=== PATIENT | male | born 1980 | race Caucasian/White ===

== ENCOUNTER → 2020-11-28 09:30 | Outpatient (CLI) | payer OTHER, SELFPAY ==
[2020-11-28 10:38] LABS: Hematocrit 46.5 % (41-53); Hemoglobin 15.2 g/dL (13.5-17.5); Mean Corpuscular HGB Conc 32.6 % (30-36); Mean Corpuscular Hemoglobin 27.5 PG (26-34); Mean Corpuscular Volume 84.2 fL (80-100); Platelet Count 214 X10^3/uL (150-400); Red Blood Cell Count 5.52 X10^6/uL (4.5-5.9); White Blood Cell Count 8.5 X10^3/uL (4.5-11.0)
[2020-11-28 10:51] LABS: Alanine Aminotransferase 30 IU/L (<50); Albumin 4.6 g/dL (3.5-5.0); Albumin Globulin Ratio 1.8 (1.0-2.8); Alkaline Phosphatase 57 U/L (38-126); Aspartate Aminotransferase 33 IU/L (17-59); BUN Creatinine Ratio 20.5 (6-22); Bilirubin Total 0.7 mg/dL (0.2-1.3); Blood Urea Nitrogen 24 mg/dL (9-20); Calcium 9.9 mg/dL (8.4-10.2); Carbon Dioxide 28 mmol/L (22-32); Chloride 106 mmol/L (98-107); Cholesterol 202 mg/dL (140-199); Estimated Glomerular Filt Rate > 60.0 mL/min (>60); Globulin 2.6 g/dL (1.7-4.1); Glucose 108 mg/dL (70-100); HDL Cholesterol 70 mg/dL (40-60); HEMOLYSIS < 15 (0-50); LDL Cholesterol Calculated 117 mg/dL (<100); Potassium 4.4 mmol/L (3.4-5.1); Sodium 142 mmol/L (137-145); Total Protein 7.2 g/dL (6.3-8.2); Triglycerides 75 mg/dL (35-150)
[2020-11-28 11:29] LABS: Prostate Specific Antigen Scrn 1.15 ng/mL (0.1-4.0)
[2020-11-28 13:15] LABS: Bacteria Urine None Seen; WBC Urine None Seen (0-5/HPF)
[2020-11-28 13:24] LABS: Appearance Urine UA CLEAR; Bilirubin Urine UA NEGATIVE (NEGATIVE); Color Urine UA YELLOW; Glucose Urine UA NEGATIVE (Negative); Ketones Urine UA NEGATIVE (NEGATIVE); Leukocyte Esterase Urine UA NEGATIVE (NEGATIVE); Nitrite Urine UA NEGATIVE (Negative); Occult Blood Urine UA TRACE-INTACT (Negative); Protein Urine UA NEGATIVE (Negative); Specific Gravity Urine UA 1.025 (1.000-1.035); Urobilinogen Urine UA 0.2 E.U./dL (0.2)
[2020-11-28 13:28] LABS: Culture Indicated Urine Cult Not Indicated; RBC Urine 1-5/HPF (0-5/HPF)
== END ==
PROVIDERS: PCP Nurse Practitioner Family; Referring Provider Nurse Practitioner Family; Visit Provider Nurse Practitioner Family
DX: Z00.00 Encounter for general adult medical examination without abnormal findings (principal); R39.15 Urgency of urination; R32 Unspecified urinary incontinence; Z13.6 Encounter for screening for cardiovascular disorders
CPT/HCPCS: 36415; 80053; 80061; 81001; 85027; G0103

== ENCOUNTER → 2021-04-12 15:18 | Outpatient (CLI) | payer OTHER, SELFPAY ==
[2021-04-12 16:00] LABS: COVID19 -Nasal RAPID Negative (Negative)
== END ==
PROVIDERS: PCP Nurse Practitioner Family; Visit Provider Physician Assistant
DX: Z20.822 Contact with and (suspected) exposure to COVID-19 (principal)
CPT/HCPCS: 87635

== ENCOUNTER → 2023-10-21 11:59 | Outpatient (CLI) | payer OTHER, SELFPAY ==
[2023-10-21 13:02] LABS: Influenza A - CEPHEID Flu A NEGATIVE (NEGATIVE); Influenza B - CEPHEID Flu B NEGATIVE (NEGATIVE); Respiratory Syncytial Virus Negative (Negative)
[2023-10-21 13:06] LABS: COVID-19 CEPHEID 4-PLEX PCR Negative (Negative)
== END ==
PROVIDERS: Visit Provider Physician Assistant
DX: R05.9 Cough, unspecified (principal)
CPT/HCPCS: 0241U

== ENCOUNTER 2024-06-07 11:33 | Emergency (ER) | payer OTHER, SELFPAY ==
[2024-06-07] VITALS (9 sets, daily range): BP systolic 143–179; BP diastolic 88–108; PULSE 75–89; RESP 14–18; TEMP 36.9; O2SAT 95–98; BMI 33.5
--- NOTE | 2024-06-07 13:47 | ED.ALLEREA ---
HPI - Allergic Reaction <Roxanna Shelton PA-C - Last Filed: 06/07/24 20:01> General Chief complaint: Allergic Reaction Stated complaint: medication reaction, sent by [facility] Time Seen by Provider: 06/07/24 12:41 Source: patient Mode of arrival: Ambulatory History of Present Illness HPI narrative: Mr. Molina is a very pleasant 43-year-old male with no reported past medical history who presents to the emergency department for 24 hours of lower extremity weakness/tingling and fingertip tingling. Patient is concerned for a possible medication side effect. He was having sinus congestion for about 1 week and was started on Augmentin . States that about 24 hours ago he started feeling pins and needles in his bilateral feet which started going up the legs and now when he walks he feels like his legs are wobbly/weak. He also has some pins and needles in his fingers. Denies any recent diarrhea/vomiting, travel. Reports he only drinks alcohol occasionally and does not smoke. States right-sided sinusitis was improving however now pressure has returned and is worsening. Denies rash, shortness of breath, fevers, chest pain, abdominal pain, back pain, neck pain, trauma. He has not seen a PCP in about 2 years. Related Data Previous Rx's Medication Instructions Recorded benzonatate 200 mg capsule 200 mg PO TID PRN cough #30 caps 10/21/23 fluticasone propionate 50 1 spray intranasal DAILY #16 grams 10/21/23 mcg/actuation nasal spray,suspension (Flonase Allergy Relief) guaifenesin 1,200 mg tablet, 1,200 mg PO Q12H #30 tabs 10/21/23 extended release 12 hr amoxicillin 875 mg-potassium 1 tab PO Q12H bacterial sinusitis 06/02/24 clavulanate 125 mg tablet 10 days #20 tabs Allergies Allergy/AdvReac Type Severity Reaction Status Date / Time No Known Drug Allergies Allergy Verified 10/21/23 11:38 Review of Systems <Roxanna Shelton PA-C - Last Filed: 06/07/24 20:01> Review of Systems ROS Unobtainable: All systems reviewed & are unremarkable except as noted in HPI and below Patient History <Roxanna Shelton PA-C - Last Filed: 06/07/24 20:01> Medical History Swelling of left knee joint (2020) Wears glasses Chicken pox (~1988) Urinary urgency (06/2020) Urinary incontinence (06/2020) Surgical History History of oral surgery (~2016) Family History Father Hyperlipidemia Social History Smoking Status: Former smoker second hand exposure: No alcohol intake: current (rare, social ) substance use type: marijuana (rare) Smoking Status: Former smoker Exam <Roxanna Shelton PA-C - Last Filed: 06/07/24 20:01> Narrative Exam Narrative: GENERAL: 43 year old patient appears stated age. Well-developed patient, in no acute distress. HEAD: Atraumatic. Normocephalic. Right maxillary sinus tenderness. EYES: PERRL. Extraocular motions intact. No scleral icterus. No injection or drainage. NECK: Trachea midline. Cervical ROM intact. CARDIOVASCULAR: Regular rate and rhythm. RESPIRATORY: ?Nonlabored respirations. ?Speaking in clear, full sentences. ?Clear to auscultation. Breath sounds equal bilaterally. No wheezes, rales, or rhonchi. ? GASTROINTESTINAL: Abdomen soft, non-tender, nondistended. EXTREMITIES: No edema or joint tenderness. NEURO: AOx3. ?Clear speech. ?Moves all 4 extremities appropriately. Somewhat unsteady gait with weakness but not ataxic. 5/5 upper and lower extremity strength when testing isolated knee/hip/ankle flexion and extension. Sensation intact to light touch and vibration on bilateral feet. Normal FNF, rapid alternating movements. Unable to elicit patellar reflex. No asymmetry of facial movements however at rest patient's right eyebrow is slightly elevated compared to left resulting in more visible right eyelid. SKIN: No rash or erythema of visible areas Initial Vital Signs Initial Vital Signs: Vital Signs Temperature 98.4 F 06/07/24 11:39 Pulse Rate 82 06/07/24 11:39 Respiratory Rate 18 06/07/24 11:39 Blood Pressure 167/106 H 06/07/24 11:39 Pulse Oximetry 98 06/07/24 11:39 Oxygen Delivery Method Room Air 06/07/24 11:39 <Antohny Webb MD - Last Filed: 06/07/24 20:47> Initial Vital Signs Initial Vital Signs: Vital Signs Temperature 98.4 F 06/07/24 11:39 Pulse Rate 82 06/07/24 11:39 Respiratory Rate 18 06/07/24 11:39 Blood Pressure 167/106 H 06/07/24 11:39 Pulse Oximetry 98 06/07/24 11:39 Oxygen Delivery Method Room Air 06/07/24 11:39 <Mally Delgado MD - Last Filed: 06/07/24 22:23> Initial Vital Signs Initial Vital Signs: Vital Signs Temperature 98.4 F 06/07/24 11:39 Pulse Rate 82 06/07/24 11:39 Respiratory Rate 18 06/07/24 11:39 Blood Pressure 167/106 H 06/07/24 11:39 Pulse Oximetry 98 06/07/24 11:39 Oxygen Delivery Method Room Air 06/07/24 11:39 Course <Roxanna Shelton PA-C - Last Filed: 06/07/24 20:01> Orders Ordered: ED Orders 06/07/24 14:30 Urinalysis and Microscopic Stat Urine Drug Screen, Rapid Stat 06/07/24 14:32 CT angio head and neck Stat CT head/brain wo con Stat 06/07/24 14:35 B12 [Vitamin B12] Stat CRP [C-Reactive Protein Quant] Stat Complete Blood Count AUTO DIFF Stat Comprehensive Metabolic Panel Stat ESR [Erythrocyte Sedimentation Rate] Stat Ethanol (ETOH) Stat Folate Stat Hemoglobin A1C% w Est Avg Glu Stat Magnesium Stat PTT Partial Thromboplastin Tj Stat Prothrombin Time INR Stat TSH [Thyroid Stimulating Hormone] Stat 06/07/24 16:41 COVID19 -Nasal RAPID Stat Discontinued Medications Acetaminophen (Acetaminophen 325 Mg Tablet) 975 mg PO NOW ONE Stop: 06/07/24 21:10 Last Admin: 06/07/24 21:15 Dose: 975 mg Documented By: TAHIRA Vital Signs Vital signs: Vital Signs - 8 hr 06/07/24 15:56 06/07/24 17:47 06/07/24 19:14 Pulse Rate 83 75 84 Respiratory Rate 17 18 Blood Pressure 167/108 H 143/93 H Pulse Oximetry 98 97 97 Oxygen Delivery Method Room Air Room Air 06/07/24 19:14 06/07/24 19:30 06/07/24 19:44 Pulse Rate 83 89 Respiratory Rate 16 14 Blood Pressure 179/103 H Pulse Oximetry 96 97 Oxygen Delivery Method Room Air Room Air 06/07/24 19:44 06/07/24 20:00 06/07/24 20:00 Pulse Rate 81 Respiratory Rate Blood Pressure 165/88 H 158/107 H Pulse Oximetry 96 Oxygen Delivery Method 06/07/24 20:30 06/07/24 21:00 06/07/24 21:00 Pulse Rate 79 77 Respiratory Rate 16 16 Blood Pressure 174/102 H Pulse Oximetry 96 95 Oxygen Delivery Method Room Air <Anthony Webb MD - Last Filed: 06/07/24 20:47> Orders Ordered: ED Orders 06/07/24 14:30 Urinalysis and Microscopic Stat Urine Drug Screen, Rapid Stat 06/07/24 14:32 CT angio head and neck Stat CT head/brain wo con Stat 06/07/24 14:35 B12 [Vitamin B12] Stat CRP [C-Reactive Protein Quant] Stat Complete Blood Count AUTO DIFF Stat Comprehensive Metabolic Panel Stat ESR [Erythrocyte Sedimentation Rate] Stat Ethanol (ETOH) Stat Folate Stat Hemoglobin A1C% w Est Avg Glu Stat Magnesium Stat PTT Partial Thromboplastin Tj Stat Prothrombin Time INR Stat TSH [Thyroid Stimulating Hormone] Stat 06/07/24 16:41 COVID19 -Nasal RAPID Stat Discontinued Medications Acetaminophen (Acetaminophen 325 Mg Tablet) 975 mg PO NOW ONE Stop: 06/07/24 21:10 Last Admin: 06/07/24 21:15 Dose: 975 mg Documented By: LS Vital Signs Vital signs: Vital Signs - 8 hr 06/07/24 15:56 06/07/24 17:47 06/07/24 19:14 Pulse Rate 83 75 84 Respiratory Rate 17 18 Blood Pressure 167/108 H 143/93 H Pulse Oximetry 98 97 97 Oxygen Delivery Method Room Air Room Air 06/07/24 19:14 06/07/24 19:30 06/07/24 19:44 Pulse Rate 83 89 Respiratory Rate 16 14 Blood Pressure 179/103 H Pulse Oximetry 96 97 Oxygen Delivery Method Room Air Room Air 06/07/24 19:44 06/07/24 20:00 06/07/24 20:00 Pulse Rate 81 Respiratory Rate Blood Pressure 165/88 H 158/107 H Pulse Oximetry 96 Oxygen Delivery Method 06/07/24 20:30 06/07/24 21:00 06/07/24 21:00 Pulse Rate 79 77 Respiratory Rate 16 16 Blood Pressure 174/102 H Pulse Oximetry 96 95 Oxygen Delivery Method Room Air <Mally Delgado MD - Last Filed: 06/07/24 22:23> Orders Ordered: ED Orders 06/07/24 14:30 Urinalysis and Microscopic Stat Urine Drug Screen, Rapid Stat 06/07/24 14:32 CT angio head and neck Stat CT head/brain wo con Stat 06/07/24 14:35 B12 [Vitamin B12] Stat CRP [C-Reactive Protein Quant] Stat Complete Blood Count AUTO DIFF Stat Comprehensive Metabolic Panel Stat ESR [Erythrocyte Sedimentation Rate] Stat Ethanol (ETOH) Stat Folate Stat Hemoglobin A1C% w Est Avg Glu Stat Magnesium Stat PTT Partial Thromboplastin Tj Stat Prothrombin Time INR Stat TSH [Thyroid Stimulating Hormone] Stat 06/07/24 16:41 COVID19 -Nasal RAPID Stat Discontinued Medications Acetaminophen (Acetaminophen 325 Mg Tablet) 975 mg PO NOW ONE Stop: 06/07/24 21:10 Last Admin: 06/07/24 21:15 Dose: 975 mg Documented By: LS Vital Signs Vital signs: Vital Signs - 8 hr 06/07/24 15:56 06/07/24 17:47 06/07/24 19:14 Pulse Rate 83 75 84 Respiratory Rate 17 18 Blood Pressure 167/108 H 143/93 H Pulse Oximetry 98 97 97 Oxygen Delivery Method Room Air Room Air 06/07/24 19:14 06/07/24 19:30 06/07/24 19:44 Pulse Rate 83 89 Respiratory Rate 16 14 Blood Pressure 179/103 H Pulse Oximetry 96 97 Oxygen Delivery Method Room Air Room Air 06/07/24 19:44 06/07/24 20:00 06/07/24 20:00 Pulse Rate 81 Respiratory Rate Blood Pressure 165/88 H 158/107 H Pulse Oximetry 96 Oxygen Delivery Method 06/07/24 20:30 06/07/24 21:00 06/07/24 21:00 Pulse Rate 79 77 Respiratory Rate 16 16 Blood Pressure 174/102 H Pulse Oximetry 96 95 Oxygen Delivery Method Room Air MDM - Allergic Reaction <Roxanna Shelton PA-C - Last Filed: 06/07/24 20:01> Medical Records Attestation: I reviewed the patient's medical records. Lab Data 06/07/24 14:35 06/07/24 14:35 Labs: Lab Results 06/07/24 06/07/24 06/07/24 Range/Units 14:30 14:30 14:35 WBC 7.8 (4.5-11.0) X10^3/uL RBC 5.79 (4.5-5.9) X10^6/uL Hgb 16.3 (13.5-17.5) g/dL Hct 47.2 (41-53) % MCV 81.5 (80-100) fL MCH 28.1 (26-34) PG MCHC 34.5 (30-36) % RDW 13.1 (11.6-14.8) % Plt Count 285 (150-400) X10^3/uL Neut % (Auto) 71.7 (50-75) % Lymph % (Auto) 20.7 L (25-40) % [place]cd[place] % (Auto) 5.5 (3-14) % Eos % (Auto) 1.0 L (2-4) % Baso % (Auto) 1.1 (0-2) % Neut # (Auto) 5600 (4385-4483) /uL Lymph # (Auto) 1600 (8822-2222) /uL [place] # (Auto) 400 (0-900) /uL Eos # (Auto) 100 (0-450) /uL Baso # (Auto) 100 (0-100) /uL ESR 8 (0-15) MM/HR PT 12.7 H (9.4-12.5) SECONDS INR 1.1 (0.9-1.3) APTT 42 H (25.1-36.5) SECONDS Sodium 142 (137-145) mmol/L Potassium 4.0 (3.4-5.1) mmol/L Chloride 110 H (98-107) mmol/L Carbon Dioxide 22 (22-32) mmol/L BUN 21 H (9-20) mg/dL Creatinine 1.28 H (0.66-1.25) mg/dL Estimated GFR > 60 (>60) mL/min BUN/Creatinine Ratio 16.4 (6-22) Glucose 98 (70-100) mg/dL Hemoglobin A1c 5.5 (4.0-6.0) % Calcium 9.5 (8.4-10.2) mg/dL Magnesium 1.9 (1.6-2.3) mg/dL Total Bilirubin 0.8 (0.2-1.3) mg/dL AST 45 (17-59) IU/L ALT 35 (<50) IU/L Alkaline Phosphatase 39 (38-126) U/L C-Reactive Protein 0.9 (<1.0) mg/dL Total Protein 8.0 (6.3-8.2) g/dL Albumin 4.8 (3.5-5.0) g/dL Globulin 3.2 (1.7-4.1) g/dL Albumin/Globulin Ratio 1.5 (1.0-2.8) Vitamin B12 882 (239-931) pg/mL Folate 13.5 (2.76-20.0) ng/mL TSH 1.34 (0.47-4.68) uIU/mL Urine Color Yellow Urine Appearance Clear Urine pH 6.0 Normal (4.5-8.0) Ur Specific [place] 1.025 (1.000-1.035) Urine Protein Negative (Negative) Urine Glucose (UA) Negative (Negative) g/dL Urine Ketones Negative (NEGATIVE) Urine Occult Blood Negative (Negative) Urine Nitrate Negative (Negative) Urine Bilirubin Negative (NEGATIVE) Urine Urobilinogen 1.0 (0.2) E.U./dL Ur Leukocyte Esterase Negative (NEGATIVE) Urine RBC 0-1/hpf (0-5/HPF) Urine WBC 0-1/hpf (0-5/HPF) Ur Squamous Epith Cells 0-1 /hpf (0-5/HPF) Urine Bacteria Occasional (0-1) (None) Ur Culture Indicated? Cult not indicated Vol Urine Centrifuged 10ml (spun) U Opiates 300ng/mL cut Negative (Negative) Ur Oxycodone Screen Negative (Negative) Urine Methadone Screen Negative (Negative) Ur Barbiturates Screen Negative (Negative) U Tricyclic Antidepress Negative (Negative) Ur Phencyclidine Scrn Negative (Negative) Ur Amphetamines Screen Negative (Negative) U Methamphetamines Scrn Negative (Negative) Ur MDMA Scrn (Ecstasy) Negative (Negative) U Benzodiazepines Scrn Negative (Negative) Urine Cocaine Screen Negative (Negative) U Marijuana (THC) Screen Negative (Negative) Urine Specific [place] Normal (Normal) Ethyl Alcohol < 10 ( - 10) mg/dL Ur Creatinine Normal (Normal) SARS-CoV-2 (PCR) (Negative) 06/07/24 Range/Units 16:41 WBC (4.5-11.0) X10^3/uL RBC (4.5-5.9) X10^6/uL Hgb (13.5-17.5) g/dL Hct (41-53) % MCV (80-100) fL MCH (26-34) PG MCHC (30-36) % RDW (11.6-14.8) % Plt Count (150-400) X10^3/uL Neut % (Auto) (50-75) % Lymph % (Auto) (25-40) % Mcd[place] % (Auto) (3-14) % Eos % (Auto) (2-4) % Baso % (Auto) (0-2) % Neut # (Auto) (6629-8917) /uL Lymph # (Auto) (9032-1187) /uL [place] # (Auto) (0-900) /uL Eos # (Auto) (0-450) /uL Baso # (Auto) (0-100) /uL ESR (0-15) MM/HR PT (9.4-12.5) SECONDS INR (0.9-1.3) APTT (25.1-36.5) SECONDS Sodium (137-145) mmol/L Potassium (3.4-5.1) mmol/L Chloride (98-107) mmol/L Carbon Dioxide (22-32) mmol/L BUN (9-20) mg/dL Creatinine (0.66-1.25) mg/dL Estimated GFR (>60) mL/min BUN/Creatinine Ratio (6-22) Glucose (70-100) mg/dL Hemoglobin A1c (4.0-6.0) % Calcium (8.4-10.2) mg/dL Magnesium (1.6-2.3) mg/dL Total Bilirubin (0.2-1.3) mg/dL AST (17-59) IU/L ALT (<50) IU/L Alkaline Phosphatase (38-126) U/L C-Reactive Protein (<1.0) mg/dL Total Protein (6.3-8.2) g/dL Albumin (3.5-5.0) g/dL Globulin (1.7-4.1) g/dL Albumin/Globulin Ratio (1.0-2.8) Vitamin B12 (239-931) pg/mL Folate (2.76-20.0) ng/mL TSH (0.47-4.68) uIU/mL Urine Color Urine Appearance Urine pH (4.5-8.0) Ur Specific [place] (1.000-1.035) Urine Protein (Negative) Urine Glucose (UA) (Negative) g/dL Urine Ketones (NEGATIVE) Urine Occult Blood (Negative) Urine Nitrate (Negative) Urine Bilirubin (NEGATIVE) Urine Urobilinogen (0.2) E.U./dL Ur Leukocyte Esterase (NEGATIVE) Urine RBC (0-5/HPF) Urine WBC (0-5/HPF) Ur Squamous Epith Cells (0-5/HPF) Urine Bacteria (None) Ur Culture Indicated? Vol Urine Centrifuged U Opiates 300ng/mL cut (Negative) Ur Oxycodone Screen (Negative) Urine Methadone Screen (Negative) Ur Barbiturates Screen (Negative) U Tricyclic Antidepress (Negative) Ur Phencyclidine Scrn (Negative) Ur Amphetamines Screen (Negative) U Methamphetamines Scrn (Negative) Ur MDMA Scrn (Ecstasy) (Negative) U Benzodiazepines Scrn (Negative) Urine Cocaine Screen (Negative) U Marijuana (THC) Screen (Negative) Urine Specific [place] (Normal) Ethyl Alcohol ( - 10) mg/dL Ur Creatinine (Normal) SARS-CoV-2 (PCR) Negative (Negative) Imaging Data CT scan - head: Radiologist's Impression: PROCEDURE: CT HEAD/BRAIN WO CON INDICATIONS: lower extremity weakness/pins needles; unsteady gait TECHNIQUE: Noncontrast 4.5 mm thick angled axial sections acquired from the foramen magnum to the vertex, with coronal and sagittal reformats. For radiation dose reduction, the following was used: automated exposure control, adjustment of mA and/or kV according to patient size. COMPARISON: None. FINDINGS: Image quality: Diagnostic. CSF spaces: Basal cisterns are patent. Posterior fossa arachnoid cyst is noted.. Ventricles are normal in size and shape. Brain: No midline shift. No intracranial masses or hemorrhage. Patricia-white matter interface is normal. Skull and face: Calvarium and visualized facial bones are intact, without suspicious lesions. Sinuses: Partial opacification of the ethmoid air cells and small air-fluid level in the right maxillary sinus. The mastoids are clear. IMPRESSION: No acute intracranial pathology. CTA head/neck: Radiologist's Impression: PROCEDURE: CT ANGIO HEAD AND NECK INDICATIONS: lower extremity weakness/pins needles; unsteady gait TECHNIQUE: After the administration of intravenous contrast, 1 mm thick sections acquired from the aortic arch through the [place] of Guz[place]. 3-dimensional yirudrt-btcgnpwth-bsmndpuhmn (MIP) and/or volume rendering reformats were acquired of the central intracranial vasculature and neck separately. For radiation dose reduction, the following was used: automated exposure control, adjustment of mA and/or kV according to patient size. COMPARISON: None. FINDINGS: Image quality: Diagnostic. BRAIN: Please refer to same day CT of the head. HEAD CT ANGIOGRAPHY: Anterior circulation: Intracranial internal carotid arteries are normal in size and flow. The flow within the paired anterior cerebral arteries is normal and symmetric. The flow within the middle cerebral arteries is normal and symmetric. The anterior communicating artery is seen. No aneurysms are seen. Posterior circulation: Visualized portions of the vertebral arteries demonstrate normal caliber, and join to form a normal appearing basilar artery. Flow within the posterior cerebral arteries is normal and symmetric. No aneurysms are seen. NECK CT ANGIOGRAPHY: Carotid system: The great vessels demonstrate a conventional anatomy as they arise from the aortic arch. The origins of the common carotid arteries appear patent. The common carotid arteries demonstrate normal caliber and courses. The bifurcation regions are both widely patent. The internal carotid arteries demonstrate normal calibers and courses. Posterior circulation: The origins of the vertebral arteries both appear widely patent. The more superior extracranial portions of both vertebral arteries also demonstrate normal courses and calibers. They join to form a normal appearing basilar artery. Soft tissues: Visualized neck soft tissues demonstrate no suspicious abnormalities. Left upper lobe nodules measuring up to 7 millimeters (6/400). Bones: No suspicious bony lesions. Visualized cervical spine appears normally aligned. IMPRESSION: No significant intracranial arterial abnormality is seen. No significant abnormality is seen within the arteries of the neck. Left upper lobe pulmonary nodules measuring up to 7 millimeters. Recommend follow-up CT chest in 6 months. Any quantitative measurements of stenosis were performed using NASCET criteria. MDM Narrative Medical decision making narrative: 43-year-old male with no reported past medical history who presents to the emergency department for 24 hours of lower extremity weakness/tingling and fingertip tingling. Discussed case with the attending physician Dr. Webb who was available for consultation and contributed to work-up. Differential diagnosis includes but is not limited to peripheral neuropathy, uncontrolled undiagnosed diabetes, folate deficiency, B12 deficiency, neurologic condition, Guillain-[place], medication side effect, anemia, electrolyte abnormality, sinusitis, preseptal cellulitis, spinal compression, etc. On exam the patient is in no acute distress, nontoxic appearing. Vital signs normal except for a mildly elevated BP 143/93. No reproducible weakness or decreased sensation of face or extremities however obvious weakness in legs when ambulating. I am unable to elicit patellar reflex. He does ambulate independently but feels somewhat wobbly/weak in the bilateral thighs. Right eyebrow appears elevated resulting in more visualization of right eyelid possible ptosis -this is not the patient's normal. We will proceed with lab work to evaluate for possible underlying diabetes, electrolyte abnormality, folate or B12 deficiency, etc. We will obtain CT head and CTA head and neck given patient's R eyelid abnormality. May need to discuss case with neuro for possible concern of Guillain-[place] if no other explanation for sx. Labs reveal normal WBC count of 7.8, hemoglobin 16.3 hematocrit 47.2. Platelets 285. Sodium 142. Potassium 4.0. BUN 21 creatinine 1.28. Normal vitamin B12, folate, TSH. Negative drug screen. CT head and CTA head and neck unremarkable except for right-sided ethmoid and maxillary sinusitis. We will consult Neurology for further recommendation. Around [address] I spoke with [facility] neurologist Dr. Mcdowell. Discussed the patient's imaging, lab work, history and physical exam. There is a concern for possible Guillain-[place] or Mccoy Bedoya variant. Patient warrants evaluation by Neurology and was accepted for transfer to [facility]. Patient is agreeable to this plan. Patient may warrant additional antibiotics such as Bactrim for sinusitis not improving on Augmentin. However at this time we will avoid initiating new medications until patient is evaluated by Neurology. Patient verbalized understanding of all information. I discussed with his sister who is a nurse. Patient is stable for transfer at this time. Nighttime physician was made aware as his time of transfer will be after my shift. <Anthony Webb MD - Last Filed: 06/07/24 20:47> Lab Data Labs: Lab Results 06/07/24 06/07/24 06/07/24 Range/Units 14:30 14:30 14:35 WBC 7.8 (4.5-11.0) X10^3/uL RBC 5.79 (4.5-5.9) X10^6/uL Hgb 16.3 (13.5-17.5) g/dL Hct 47.2 (41-53) % MCV 81.5 (80-100) fL MCH 28.1 (26-34) PG MCHC 34.5 (30-36) % RDW 13.1 (11.6-14.8) % Plt Count 285 (150-400) X10^3/uL Neut % (Auto) 71.7 (50-75) % Lymph % (Auto) 20.7 L (25-40) % [place] % (Auto) 5.5 (3-14) % Eos % (Auto) 1.0 L (2-4) % Baso % (Auto) 1.1 (0-2) % Neut # (Auto) 5600 (9754-8265) /uL Lymph # (Auto) 1600 (8138-6056) /uL [place] # (Auto) 400 (0-900) /uL Eos # (Auto) 100 (0-450) /uL Baso # (Auto) 100 (0-100) /uL ESR 8 (0-15) MM/HR PT 12.7 H (9.4-12.5) SECONDS INR 1.1 (0.9-1.3) APTT 42 H (25.1-36.5) SECONDS Sodium 142 (137-145) mmol/L Potassium 4.0 (3.4-5.1) mmol/L Chloride 110 H (98-107) mmol/L Carbon Dioxide 22 (22-32) mmol/L BUN 21 H (9-20) mg/dL Creatinine 1.28 H (0.66-1.25) mg/dL Estimated GFR > 60 (>60) mL/min BUN/Creatinine Ratio 16.4 (6-22) Glucose 98 (70-100) mg/dL Hemoglobin A1c 5.5 (4.0-6.0) % Calcium 9.5 (8.4-10.2) mg/dL Magnesium 1.9 (1.6-2.3) mg/dL Total Bilirubin 0.8 (0.2-1.3) mg/dL AST 45 (17-59) IU/L ALT 35 (<50) IU/L Alkaline Phosphatase 39 (38-126) U/L C-Reactive Protein 0.9 (<1.0) mg/dL Total Protein 8.0 (6.3-8.2) g/dL Albumin 4.8 (3.5-5.0) g/dL Globulin 3.2 (1.7-4.1) g/dL Albumin/Globulin Ratio 1.5 (1.0-2.8) Vitamin B12 882 (239-931) pg/mL Folate 13.5 (2.76-20.0) ng/mL TSH 1.34 (0.47-4.68) uIU/mL Urine Color Yellow Urine Appearance Clear Urine pH 6.0 Normal (4.5-8.0) Ur Specific [place] 1.025 (1.000-1.035) Urine Protein Negative (Negative) Urine Glucose (UA) Negative (Negative) g/dL Urine Ketones Negative (NEGATIVE) Urine Occult Blood Negative (Negative) Urine Nitrate Negative (Negative) Urine Bilirubin Negative (NEGATIVE) Urine Urobilinogen 1.0 (0.2) E.U./dL Ur Leukocyte Esterase Negative (NEGATIVE) Urine RBC 0-1/hpf (0-5/HPF) Urine WBC 0-1/hpf (0-5/HPF) Ur Squamous Epith Cells 0-1 /hpf (0-5/HPF) Urine Bacteria Occasional (0-1) (None) Ur Culture Indicated? Cult not indicated Vol Urine Centrifuged 10ml (spun) U Opiates 300ng/mL cut Negative (Negative) Ur Oxycodone Screen Negative (Negative) Urine Methadone Screen Negative (Negative) Ur Barbiturates Screen Negative (Negative) U Tricyclic Antidepress Negative (Negative) Ur Phencyclidine Scrn Negative (Negative) Ur Amphetamines Screen Negative (Negative) U Methamphetamines Scrn Negative (Negative) Ur MDMA Scrn (Ecstasy) Negative (Negative) U Benzodiazepines Scrn Negative (Negative) Urine Cocaine Screen Negative (Negative) U Marijuana (THC) Screen Negative (Negative) Urine Specific [place] Normal (Normal) Ethyl Alcohol < 10 ( - 10) mg/dL Ur Creatinine Normal (Normal) SARS-CoV-2 (PCR) (Negative) 06/07/24 Range/Units 16:41 WBC (4.5-11.0) X10^3/uL RBC (4.5-5.9) X10^6/uL Hgb (13.5-17.5) g/dL Hct (41-53) % MCV (80-100) fL MCH (26-34) PG MCHC (30-36) % RDW (11.6-14.8) % Plt Count (150-400) X10^3/uL Neut % (Auto) (50-75) % Lymph % (Auto) (25-40) % [place] % (Auto) (3-14) % Eos % (Auto) (2-4) % Baso % (Auto) (0-2) % Neut # (Auto) (8481-6810) /uL Lymph # (Auto) (6670-2054) /uL [place] # (Auto) (0-900) /uL Eos # (Auto) (0-450) /uL Baso # (Auto) (0-100) /uL ESR (0-15) MM/HR PT (9.4-12.5) SECONDS INR (0.9-1.3) APTT (25.1-36.5) SECONDS Sodium (137-145) mmol/L Potassium (3.4-5.1) mmol/L Chloride (98-107) mmol/L Carbon Dioxide (22-32) mmol/L BUN (9-20) mg/dL Creatinine (0.66-1.25) mg/dL Estimated GFR (>60) mL/min BUN/Creatinine Ratio (6-22) Glucose (70-100) mg/dL Hemoglobin A1c (4.0-6.0) % Calcium (8.4-10.2) mg/dL Magnesium (1.6-2.3) mg/dL Total Bilirubin (0.2-1.3) mg/dL AST (17-59) IU/L ALT (<50) IU/L Alkaline Phosphatase (38-126) U/L C-Reactive Protein (<1.0) mg/dL Total Protein (6.3-8.2) g/dL Albumin (3.5-5.0) g/dL Globulin (1.7-4.1) g/dL Albumin/Globulin Ratio (1.0-2.8) Vitamin B12 (239-931) pg/mL Folate (2.76-20.0) ng/mL TSH (0.47-4.68) uIU/mL Urine Color Urine Appearance Urine pH (4.5-8.0) Ur Specific [place] (1.000-1.035) Urine Protein (Negative) Urine Glucose (UA) (Negative) g/dL Urine Ketones (NEGATIVE) Urine Occult Blood (Negative) Urine Nitrate (Negative) Urine Bilirubin (NEGATIVE) Urine Urobilinogen (0.2) E.U./dL Ur Leukocyte Esterase (NEGATIVE) Urine RBC (0-5/HPF) Urine WBC (0-5/HPF) Ur Squamous Epith Cells (0-5/HPF) Urine Bacteria (None) Ur Culture Indicated? Vol Urine Centrifuged U Opiates 300ng/mL cut (Negative) Ur Oxycodone Screen (Negative) Urine Methadone Screen (Negative) Ur Barbiturates Screen (Negative) U Tricyclic Antidepress (Negative) Ur Phencyclidine Scrn (Negative) Ur Amphetamines Screen (Negative) U Methamphetamines Scrn (Negative) Ur MDMA Scrn (Ecstasy) (Negative) U Benzodiazepines Scrn (Negative) Urine Cocaine Screen (Negative) U Marijuana (THC) Screen (Negative) Urine Specific [place] (Normal) Ethyl Alcohol ( - 10) mg/dL Ur Creatinine (Normal) SARS-CoV-2 (PCR) Negative (Negative) <Mally Delgado MD - Last Filed: 06/07/24 22:23> Lab Data Labs: Lab Results 06/07/24 06/07/24 06/07/24 Range/Units 14:30 14:30 14:35 WBC 7.8 (4.5-11.0) X10^3/uL RBC 5.79 (4.5-5.9) X10^6/uL Hgb 16.3 (13.5-17.5) g/dL Hct 47.2 (41-53) % MCV 81.5 (80-100) fL MCH 28.1 (26-34) PG MCHC 34.5 (30-36) % RDW 13.1 (11.6-14.8) % Plt Count 285 (150-400) X10^3/uL Neut % (Auto) 71.7 (50-75) % Lymph % (Auto) 20.7 L (25-40) % [place] % (Auto) 5.5 (3-14) % Eos % (Auto) 1.0 L (2-4) % Baso % (Auto) 1.1 (0-2) % Neut # (Auto) 5600 (6621-4850) /uL Lymph # (Auto) 1600 (7124-6366) /uL [place] # (Auto) 400 (0-900) /uL Eos # (Auto) 100 (0-450) /uL Baso # (Auto) 100 (0-100) /uL ESR 8 (0-15) MM/HR PT 12.7 H (9.4-12.5) SECONDS INR 1.1 (0.9-1.3) APTT 42 H (25.1-36.5) SECONDS Sodium 142 (137-145) mmol/L Potassium 4.0 (3.4-5.1) mmol/L Chloride 110 H (98-107) mmol/L Carbon Dioxide 22 (22-32) mmol/L BUN 21 H (9-20) mg/dL Creatinine 1.28 H (0.66-1.25) mg/dL Estimated GFR > 60 (>60) mL/min BUN/Creatinine Ratio 16.4 (6-22) Glucose 98 (70-100) mg/dL Hemoglobin A1c 5.5 (4.0-6.0) % Calcium 9.5 (8.4-10.2) mg/dL Magnesium 1.9 (1.6-2.3) mg/dL Total Bilirubin 0.8 (0.2-1.3) mg/dL AST 45 (17-59) IU/L ALT 35 (<50) IU/L Alkaline Phosphatase 39 (38-126) U/L C-Reactive Protein 0.9 (<1.0) mg/dL Total Protein 8.0 (6.3-8.2) g/dL Albumin 4.8 (3.5-5.0) g/dL Globulin 3.2 (1.7-4.1) g/dL Albumin/Globulin Ratio 1.5 (1.0-2.8) Vitamin B12 882 (239-931) pg/mL Folate 13.5 (2.76-20.0) ng/mL TSH 1.34 (0.47-4.68) uIU/mL Urine Color Yellow Urine Appearance Clear Urine pH 6.0 Normal (4.5-8.0) Ur Specific [place] 1.025 (1.000-1.035) Urine Protein Negative (Negative) Urine Glucose (UA) Negative (Negative) g/dL Urine Ketones Negative (NEGATIVE) Urine Occult Blood Negative (Negative) Urine Nitrate Negative (Negative) Urine Bilirubin Negative (NEGATIVE) Urine Urobilinogen 1.0 (0.2) E.U./dL Ur Leukocyte Esterase Negative (NEGATIVE) Urine RBC 0-1/hpf (0-5/HPF) Urine WBC 0-1/hpf (0-5/HPF) Ur Squamous Epith Cells 0-1 /hpf (0-5/HPF) Urine Bacteria Occasional (0-1) (None) Ur Culture Indicated? Cult not indicated Vol Urine Centrifuged 10ml (spun) U Opiates 300ng/mL cut Negative (Negative) Ur Oxycodone Screen Negative (Negative) Urine Methadone Screen Negative (Negative) Ur Barbiturates Screen Negative (Negative) U Tricyclic Antidepress Negative (Negative) Ur Phencyclidine Scrn Negative (Negative) Ur Amphetamines Screen Negative (Negative) U Methamphetamines Scrn Negative (Negative) Ur MDMA Scrn (Ecstasy) Negative (Negative) U Benzodiazepines Scrn Negative (Negative) Urine Cocaine Screen Negative (Negative) U Marijuana (THC) Screen Negative (Negative) Urine Specific [place] Normal (Normal) Ethyl Alcohol < 10 ( - 10) mg/dL Ur Creatinine Normal (Normal) SARS-CoV-2 (PCR) (Negative) 06/07/24 Range/Units 16:41 WBC (4.5-11.0) X10^3/uL RBC (4.5-5.9) X10^6/uL Hgb (13.5-17.5) g/dL Hct (41-53) % MCV (80-100) fL MCH (26-34) PG MCHC (30-36) % RDW (11.6-14.8) % Plt Count (150-400) X10^3/uL Neut % (Auto) (50-75) % Lymph % (Auto) (25-40) % [place] % (Auto) (3-14) % Eos % (Auto) (2-4) % Baso % (Auto) (0-2) % Neut # (Auto) (9515-3525) /uL Lymph # (Auto) (1765-0577) /uL [place] # (Auto) (0-900) /uL Eos # (Auto) (0-450) /uL Baso # (Auto) (0-100) /uL ESR (0-15) MM/HR PT (9.4-12.5) SECONDS INR (0.9-1.3) APTT (25.1-36.5) SECONDS Sodium (137-145) mmol/L Potassium (3.4-5.1) mmol/L Chloride (98-107) mmol/L Carbon Dioxide (22-32) mmol/L BUN (9-20) mg/dL Creatinine (0.66-1.25) mg/dL Estimated GFR (>60) mL/min BUN/Creatinine Ratio (6-22) Glucose (70-100) mg/dL Hemoglobin A1c (4.0-6.0) % Calcium (8.4-10.2) mg/dL Magnesium (1.6-2.3) mg/dL Total Bilirubin (0.2-1.3) mg/dL AST (17-59) IU/L ALT (<50) IU/L Alkaline Phosphatase (38-126) U/L C-Reactive Protein (<1.0) mg/dL Total Protein (6.3-8.2) g/dL Albumin (3.5-5.0) g/dL Globulin (1.7-4.1) g/dL Albumin/Globulin Ratio (1.0-2.8) Vitamin B12 (239-931) pg/mL Folate (2.76-20.0) ng/mL TSH (0.47-4.68) uIU/mL Urine Color Urine Appearance Urine pH (4.5-8.0) Ur Specific [place] (1.000-1.035) Urine Protein (Negative) Urine Glucose (UA) (Negative) g/dL Urine Ketones (NEGATIVE) Urine Occult Blood (Negative) Urine Nitrate (Negative) Urine Bilirubin (NEGATIVE) Urine Urobilinogen (0.2) E.U./dL Ur Leukocyte Esterase (NEGATIVE) Urine RBC (0-5/HPF) Urine WBC (0-5/HPF) Ur Squamous Epith Cells (0-5/HPF) Urine Bacteria (None) Ur Culture Indicated? Vol Urine Centrifuged U Opiates 300ng/mL cut (Negative) Ur Oxycodone Screen (Negative) Urine Methadone Screen (Negative) Ur Barbiturates Screen (Negative) U Tricyclic Antidepress (Negative) Ur Phencyclidine Scrn (Negative) Ur Amphetamines Screen (Negative) U Methamphetamines Scrn (Negative) Ur MDMA Scrn (Ecstasy) (Negative) U Benzodiazepines Scrn (Negative) Urine Cocaine Screen (Negative) U Marijuana (THC) Screen (Negative) Urine Specific [place] (Normal) Ethyl Alcohol ( - 10) mg/dL Ur Creatinine (Normal) SARS-CoV-2 (PCR) Negative (Negative) MDM Narrative Medical decision making narrative: 43-year-old male with no reported past medical history who presents to the emergency department for 24 hours of lower extremity weakness/tingling and fingertip tingling. Discussed case with the attending physician Dr. Webb who was available for consultation and contributed to work-up. Differential diagnosis includes but is not limited to peripheral neuropathy, uncontrolled undiagnosed diabetes, folate deficiency, B12 deficiency, neurologic condition, Guillain-[place], medication side effect, anemia, electrolyte abnormality, sinusitis, preseptal cellulitis, spinal compression, etc. On exam the patient is in no acute distress, nontoxic appearing. Vital signs normal except for a mildly elevated BP 143/93. No reproducible weakness or decreased sensation of face or extremities however obvious weakness in legs when ambulating. I am unable to elicit patellar reflex. He does ambulate independently but feels somewhat wobbly/weak in the bilateral thighs. Right eyebrow appears elevated resulting in more visualization of right eyelid possible ptosis -this is not the patient's normal. We will proceed with lab work to evaluate for possible underlying diabetes, electrolyte abnormality, folate or B12 deficiency, etc. We will obtain CT head and CTA head and neck given patient's R eyelid abnormality. May need to discuss case with neuro for possible concern of Guillain-[place] if no other explanation for sx. Labs reveal normal WBC count of 7.8, hemoglobin 16.3 hematocrit 47.2. Platelets 285. Sodium 142. Potassium 4.0. BUN 21 creatinine 1.28. Normal vitamin B12, folate, TSH. Negative drug screen. CT head and CTA head and neck unremarkable except for right-sided ethmoid and maxillary sinusitis. We will consult Neurology for further recommendation. Around [address] I spoke with [facility] neurologist Dr. Mcdowell. Discussed the patient's imaging, lab work, history and physical exam. There is a concern for possible Guillain-[place] or Mccoy Bedoya variant. Patient warrants evaluation by Neurology and was accepted for transfer to [facility]. Patient is agreeable to this plan. Patient may warrant additional antibiotics such as Bactrim for sinusitis not improving on Augmentin. However at this time we will avoid initiating new medications until patient is evaluated by Neurology. Patient verbalized understanding of all information. I discussed with his sister who is a nurse. Patient is stable for transfer at this time. Nighttime physician was made aware as his time of transfer will be after my shift. Dr. Delgado - patient transferred in stable condition by ambulance service. Discharge Plan Departure Patient Disposition: [facility] Clinical Impression: Leg weakness, bilateral Prescriptions: No Action guaifenesin 1,200 mg tablet extended release 12hr 1,200 mg PO Q12H Qty: 30 0RF benzonatate 200 mg capsule 200 mg PO TID PRN (Reason: cough) Qty: 30 0RF fluticasone propionate [Flonase Allergy Relief] 50 mcg/actuation spray,suspension 1 spray intranasal DAILY Qty: 16 0RF Rx Instructions: administer into each nostril amoxicillin-pot clavulanate 875-125 mg tablet 1 tab PO Q12H 10 Days Qty: 20 0RF Referrals: Miscellaneous,DoctorMD [Primary Care Provider] - ED Sign-out <Anthony Webb MD - Last Filed: 06/07/24 20:47> Cosign ED Attending Cosignature Attestation: I was immediately available in the department for consultation. This documentation has been reviewed and I agree with assessment and plan. Supervised by Anthony Webb MD
--- NOTE | 2024-06-07 14:32 | DI.CT.S_ITS ---
PROCEDURE: CT HEAD/BRAIN WO CON INDICATIONS: lower extremity weakness/pins needles; unsteady gait TECHNIQUE: Noncontrast 4.5 mm thick angled axial sections acquired from the foramen magnum to the vertex, with coronal and sagittal reformats. For radiation dose reduction, the following was used: automated exposure control, adjustment of mA and/or kV according to patient size. COMPARISON: None. FINDINGS: Image quality: Diagnostic. CSF spaces: Basal cisterns are patent. Posterior fossa arachnoid cyst is noted.. Ventricles are normal in size and shape. Brain: No midline shift. No intracranial masses or hemorrhage. Patricia-white matter interface is normal. Skull and face: Calvarium and visualized facial bones are intact, without suspicious lesions. Sinuses: Partial opacification of the ethmoid air cells and small air-fluid level in the right maxillary sinus. The mastoids are clear. IMPRESSION: No acute intracranial pathology. Dictated by: Paulino Nesbitt M.D. on 06/07/2024 at 15:03 Approved by: Paulino Nesbitt M.D. on 06/07/2024 at 15:04
--- NOTE | 2024-06-07 14:32 | DI.CT.S_ITS ---
PROCEDURE: CT ANGIO HEAD AND NECK INDICATIONS: lower extremity weakness/pins needles; unsteady gait TECHNIQUE: After the administration of intravenous contrast, 1 mm thick sections acquired from the aortic arch through the [place]. 3-dimensional [id number] (MIP) and/or volume rendering reformats were acquired of the central intracranial vasculature and neck separately. For radiation dose reduction, the following was used: automated exposure control, adjustment of mA and/or kV according to patient size. COMPARISON: None. FINDINGS: Image quality: Diagnostic. BRAIN: Please refer to same day CT of the head. HEAD CT ANGIOGRAPHY: Anterior circulation: Intracranial internal carotid arteries are normal in size and flow. The flow within the paired anterior cerebral arteries is normal and symmetric. The flow within the middle cerebral arteries is normal and symmetric. The anterior communicating artery is seen. No aneurysms are seen. Posterior circulation: Visualized portions of the vertebral arteries demonstrate normal caliber, and join to form a normal appearing basilar artery. Flow within the posterior cerebral arteries is normal and symmetric. No aneurysms are seen. NECK CT ANGIOGRAPHY: Carotid system: The great vessels demonstrate a conventional anatomy as they arise from the aortic arch. The origins of the common carotid arteries appear patent. The common carotid arteries demonstrate normal caliber and courses. The bifurcation regions are both widely patent. The internal carotid arteries demonstrate normal calibers and courses. Posterior circulation: The origins of the vertebral arteries both appear widely patent. The more superior extracranial portions of both vertebral arteries also demonstrate normal courses and calibers. They join to form a normal appearing basilar artery. Soft tissues: Visualized neck soft tissues demonstrate no suspicious abnormalities. Left upper lobe nodules measuring up to 7 millimeters (6/400). Bones: No suspicious bony lesions. Visualized cervical spine appears normally aligned. IMPRESSION: No significant intracranial arterial abnormality is seen. No significant abnormality is seen within the arteries of the neck. Left upper lobe pulmonary nodules measuring up to 7 millimeters. Recommend follow-up CT chest in 6 months. Any quantitative measurements of stenosis were performed using NASCET criteria. Dictated by: Paulino Nesbitt M.D. on 06/07/2024 at 15:05 Approved by: Paulino Nesbitt M.D. on 06/07/2024 at 15:10
[2024-06-07 14:42] LABS: Add Manual Diff / Slide Review NO; Basophils Absolute Auto 100 /uL (0-100); Basophils Percent Auto 1.1 % (0-2); Eosinophils Absolute Auto 100 /uL (0-450); Hematocrit 47.2 % (41-53); Hemoglobin 16.3 g/dL (13.5-17.5); Lymphocytes Absolute Auto 1600 /uL (1100-4500); Lymphocytes Percent Auto 20.7 % (25-40); Mean Corpuscular HGB Conc 34.5 % (30-36); Mean Corpuscular Hemoglobin 28.1 PG (26-34); Mean Corpuscular Volume 81.5 fL (80-100); Monocytes Absolute Auto 400 /uL (0-900); Monocytes Percent Auto 5.5 % (3-14); Neutrophils Absolute Auto 5600 /uL (1500-7000); Neutrophils Percent Auto 71.7 % (50-75); Platelet Count 285 X10^3/uL (150-400); Red Blood Cell Count 5.79 X10^6/uL (4.5-5.9); Red Cell Distribution Width 13.1 % (11.6-14.8); White Blood Cell Count 7.8 X10^3/uL (4.5-11.0)
--- NOTE | 2024-06-07 14:43 | PC.NURSE ---
A&Ox4, pt complains of head pressure and difficulty keeping his right eye open. Right eye appears to be drooping. Rest of face is symmetrical. Pt also complains of numbness in right finger tips. RN ambulated pt to bathroom and pt appears to be having difficulty with right leg. Gait is abnormal. States he has bilateral leg weakness and pins and needle sensation. Roxanna Shelton updated. Head CT ordered.
[2024-06-07 14:46] LABS: Appearance Urine UA CLEAR; Bilirubin Urine UA NEGATIVE (NEGATIVE); Color Urine UA YELLOW; Glucose Urine UA NEGATIVE (Negative); Ketones Urine UA NEGATIVE (NEGATIVE); Leukocyte Esterase Urine UA NEGATIVE (NEGATIVE); Nitrite Urine UA NEGATIVE (Negative); Occult Blood Urine UA NEGATIVE (Negative); Protein Urine UA NEGATIVE (Negative); Specific Gravity Urine UA 1.025 (1.000-1.035)
[2024-06-07 14:50] LABS: INR 1.1 (0.9-1.3); Prothrombin Time 12.7 SECONDS (9.4-12.5)
[2024-06-07 14:50] LABS: Ur Creatinine Normal (Normal); Ur Specific Gravity Normal (Normal); Urine Amphetamines Negative (Negative); Urine Barbiturates Negative (Negative); Urine Benzodiazepines Negative (Negative); Urine Cocaine Negative (Negative); Urine MDMA Negative (Negative); Urine Methadone Negative (Negative); Urine Methamphetamines Negative (Negative); Urine Opiates Negative (Negative); Urine Oxycodone Negative (Negative); Urine Phencyclidine Negative (Negative); Urine THC Negative (Negative); Urine Tricyclic Antidepressant Negative (Negative); Urine pH Normal (Normal)
[2024-06-07 14:53] LABS: PTT Partial Thromboplastin Tim 42 SECONDS (25.1-36.5)
[2024-06-07 14:58] LABS: Bacteria Urine Occasional (0-1); Culture Indicated Urine Cult Not Indicated; RBC Urine 0-1/HPF (0-5/HPF); Squamous Epithelial Cell Urine 0-1 /HPF (0-5/HPF); Urine Volume 10mL (spun); WBC Urine 0-1/HPF (0-5/HPF)
[2024-06-07 15:03] LABS: Alanine Aminotransferase 35 IU/L (<50); Albumin 4.8 g/dL (3.5-5.0); Albumin Globulin Ratio 1.5 (1.0-2.8); Alkaline Phosphatase 39 U/L (38-126); Aspartate Aminotransferase 45 IU/L (17-59); BUN Creatinine Ratio 16.4 (6-22); Bilirubin Total 0.8 mg/dL (0.2-1.3); Blood Urea Nitrogen 21 mg/dL (9-20); Calcium 9.5 mg/dL (8.4-10.2); Carbon Dioxide 22 mmol/L (22-32); Chloride 110 mmol/L (98-107); Estimated Glomerular Filt Rate > 60 mL/min (>60); Ethanol (ETOH) < 10 mg/dL; Globulin 3.2 g/dL (1.7-4.1); Glucose 98 mg/dL (70-100); Magnesium 1.9 mg/dL (1.6-2.3); Sodium 142 mmol/L (137-145)
[2024-06-07 15:04] LABS: C-Reactive Protein Quant 0.9 mg/dL (<1.0); HEMOLYSIS 55 (0-50)
[2024-06-07 15:06] LABS: Hemoglobin A1C% w Est Avg Glu 5.5 % (4.0-6.0)
[2024-06-07 15:33] LABS: Thyroid Stimulating Hormone 1.34 uIU/mL (0.47-4.68)
[2024-06-07 15:49] LABS: Erythrocyte Sedimentation Rate 8 MM/HR (0-15)
[2024-06-07 15:52] LABS: Vitamin B12 882 pg/mL (239-931)
[2024-06-07 16:09] LABS: Folate 13.5 ng/mL (2.76-20.0)
[2024-06-07 17:12] LABS: COVID19 -Nasal RAPID Negative (Negative)
--- NOTE | 2024-06-07 19:49 | PC.NURSE ---
Pt awake and alert sitting in ED stretcher speaking with family. No distress noted at this time. Pt connected to blood pressure and pulse ox monitors with [place] on and audible. Call light within reach. Ice water provided as per pt request.
[2024-06-07] MEDS: ACETAMINOPHEN 325 MG TABLET 975 MG PO (21:15)
== END 2024-06-07 21:57 | disposition short-term general hospital (02) ==
PROVIDERS: Emergency Provider Physician Assistant
DX: R53.1 Weakness (principal); R20.2 Paresthesia of skin; J32.0 Chronic maxillary sinusitis; Z11.52 Encounter for screening for COVID-19; Z87.891 Personal history of nicotine dependence
CPT/HCPCS: 36415; 70450; 70496; 70498; 80053; 80305; 80320; 81001; 82607; 82746; 83036; 83735; 84443; 85025; 85610; 85651; 85730; 86140; 87635; 99284; 99285; Q9967

== ENCOUNTER → 2025-03-21 08:42 | Outpatient (CLI) | payer OTHER, SELFPAY ==
[2025-03-21 10:05] LABS: Hematocrit 47.5 % (41-53); Hemoglobin 16.2 g/dL (13.5-17.5); Mean Corpuscular HGB Conc 34.2 % (30-36); Mean Corpuscular Hemoglobin 28.2 PG (26-34); Mean Corpuscular Volume 82.4 fL (80-100); Platelet Count 222 X10^3/uL (150-400)
[2025-03-21 10:34] LABS: Alanine Aminotransferase 25 IU/L (<50); Albumin 5.0 g/dL (3.5-5.0); Albumin Globulin Ratio 1.9 (1.0-2.8); Alkaline Phosphatase 53 U/L (38-126); Blood Urea Nitrogen 26 mg/dL (9-20); Calcium 9.8 mg/dL (8.4-10.2); Carbon Dioxide 24 mmol/L (22-32); Chloride 106 mmol/L (98-107); Cholesterol 209 mg/dL (140-199); Estimated Glomerular Filt Rate > 60 mL/min (>60); Globulin 2.7 g/dL (1.7-4.1); Glucose 111 mg/dL (70-99); HDL Cholesterol 68 mg/dL (40-60); HEMOLYSIS < 15 (0-50); Potassium 4.0 mmol/L (3.4-5.1); Sodium 140 mmol/L (137-145); Total Protein 7.7 g/dL (6.3-8.2); Triglycerides 86 mg/dL (35-150)
[2025-03-21 15:14] LABS: HIV 1 & 2 Ab/Ag 4th Gen Combo NEGATIVE (NEGATIVE); Hep C Virus Ab w/Reflex Quant NEGATIVE s/c (NEGATIVE)
== END ==
PROVIDERS: PCP Family Medicine; Referring Provider Family Medicine; Visit Provider Family Medicine
DX: I10 Essential (primary) hypertension (principal); Z86.69 Personal history of other diseases of the nervous system and sense organs; Z53.20 Procedure and treatment not carried out because of patient's decision for unspecified reasons; Z11.4 Encounter for screening for human immunodeficiency virus [HIV]
CPT/HCPCS: 36415; 80053; 80061; 85027; 86803; 87389

== ENCOUNTER → 2025-03-23 09:43 | Outpatient (CLI) | payer OTHER, SELFPAY | PROVIDERS: PCP Family Medicine; Referring Provider Family Medicine; Visit Provider Family Medicine | DX: I10 Essential (primary) hypertension (principal); Z86.69 Personal history of other diseases of the nervous system and sense organs | CPT/HCPCS: 82043; 82570 ==